=== PATIENT | male | born 2000 | race Caucasian/White ===

== ENCOUNTER 2022-10-09 17:40 | Emergency (ER) | payer BC ==
[~2022-10-09] VITALS: Ht 175.3 cm; Wt 81.6 kg
--- NOTE | 2022-10-09 17:47 | NUR ---
pt not in lobby when called for triage
--- NOTE | 2022-10-09 18:20 | NUR ---
PT WALKED TO BED 5 WITH FAMILY IN STEADY GAIT.
[2022-10-09 18:30] VITALS: BP_SYST 123
[2022-10-09] MEDS ORDERED: LORA-259 PO (18:54)
--- NOTE | 2022-10-09 19:07 | NUR ---
Patient given written and verbal discharge instructions and verbalizes understanding. ER MD discussed with patient the results and treatment provided. Patient in stable condition. ID arm band removed. IV catheter removed intact and dressing applied, no active bleeding. Rx of ATIVAN given. Patient educated on pain management and to follow up with PMD. Pain Scale 0. Opportunity for questions provided and answered. Medication side effect fact sheet provided.
[2022-10-09 19:13] VITALS: BP_SYST 112
== END 2022-10-09 19:13 | disposition home or self-care (01) ==
LOC: SED 17:40
DX: F11.13 Opioid abuse with withdrawal (principal); Z79.899 Other long term (current) drug therapy
CPT/HCPCS: 99283